=== PATIENT | female | born 1990 | race Caucasian/White ===

== ENCOUNTER 2019-03-23 11:15 | Emergency (ER) | payer OTHER ==
[~2019-03-23] VITALS: Ht 165.1 cm; Wt 62.1 kg
[2019-03-23 11:29] VITALS: BP 114/70
--- NOTE | 2019-03-23 12:42 | NUR ---
Patient discharged to home in stable condition. Written and verbal after care instructions given. Patient verbalizes understanding of instruction.
== END 2019-03-23 12:44 | disposition home or self-care (01) ==
LOC: ER 11:15
DX: O99.712 Diseases of the skin and subcutaneous tissue complicating pregnancy, second trimester (principal); T78.3XXA Angioneurotic edema, initial encounter; Z3A.20 20 weeks gestation of pregnancy

== ENCOUNTER 2019-12-12 00:31 | Emergency (ER) | payer OTHER ==
[~2019-12-12] VITALS: Ht 165.1 cm; Wt 61.2 kg
[2019-12-12 00:38] VITALS: BP 109/65
== END 2019-12-12 00:56 | disposition home or self-care (01) ==
LOC: ER 00:31
DX: S90.562A Insect bite (nonvenomous), left ankle, initial encounter (principal); W57.XXXA Bitten or stung by nonvenomous insect and other nonvenomous arthropods, initial encounter; Y93.89 Activity, other specified; Y92.89 Other specified places as the place of occurrence of the external cause; Y99.8 Other external cause status

== ENCOUNTER 2020-01-08 12:07 | Emergency (ER) | payer OTHER ==
[~2020-01-08] VITALS: Ht 160 cm; Wt 59.9 kg
[2020-01-08 12:29] VITALS: BP 116/71
--- NOTE | 2020-01-08 13:23 | NUR ---
SEEN AND EXAMINED BY
--- NOTE | 2020-01-08 13:50 | NUR ---
TECH AT BEDSIDE FOR US.
--- NOTE | 2020-01-08 13:50 | NUR ---
[facility] in [facility] - 01/08/20 at 1423 by LAURA TECH AT [facility]
--- NOTE | 2020-01-08 14:37 | NUR ---
Patient discharged to home in stable condition. Written and verbal after care instructions given. Patient verbalizes understanding of instruction.
== END 2020-01-08 14:39 | disposition home or self-care (01) ==
LOC: ER 12:07
DX: S80.862A Insect bite (nonvenomous), left lower leg, initial encounter (principal); S80.861A Insect bite (nonvenomous), right lower leg, initial encounter; L01.00 Impetigo, unspecified; L03.116 Cellulitis of left lower limb; L03.115 Cellulitis of right lower limb; R60.0 Localized edema; W57.XXXA Bitten or stung by nonvenomous insect and other nonvenomous arthropods, initial encounter; Y93.89 Activity, other specified; Y92.89 Other specified places as the place of occurrence of the external cause; Y99.8 Other external cause status
CPT/HCPCS: 93971-TC